=== PATIENT | male | born 1970 | race Caucasian/White ===

== ENCOUNTER 2017-03-13 18:56 | Emergency (ER) | payer SELFPAY ==
[2017-03-13] MEDS ORDERED: TRIAMCINOLONE ACETONIDE 40 MG/ML VIAL IM ONE (19:46)
[2017-03-13] MEDS ORDERED: TRIAMCINOLONE ACETONIDE 15 APPL TUBE TP ONE ×2 (19:46→19:49)
[2017-03-13] MEDS ORDERED: DEXAMETHASONE SOD PHOSPHATE 10 MG/ML VIAL IM ONE (19:46)
[2017-03-13] MEDS ORDERED: TRIAMCINOLONE ACETONIDE 40 MG/ML VIAL ONE (19:49)
[2017-03-13] MEDS ORDERED: DEXAMETHASONE SOD PHOSPHATE 10 MG/ML VIAL ONE (19:49)
[2017-03-13 19:58] VITALS: BP 122/78
--- NOTE | 2017-03-13 20:01 | ERNOTE ---
Integumentary HPI - Narrative Date of Service: 03/13/17 - General Presenting Symptoms: rash Time Seen by Provider: 03/13/17 19:33 Source: patient, RN notes reviewed Exam Limitations: no limitations - Immun/Allergies/Home Medications Immunizations: IMMUNIZATION HX Immunizations Up to Date No History of Influenza Vaccine No Allergies/Adverse Reactions: Allergies Allergy/AdvReac Type Severity Reaction Status Date / Time No Known Allergies Allergy Unverified 03/13/17 19:08 Home Medications: HOME MEDICATIONS Aspirin [Aspirin EC] 81 mg PO DAILY 03/13/17 [Last Taken Unknown] Furosemide [Lasix] 20 mg PO BID PRN 03/13/17 [Last Taken Unknown] - History of Present Illness Narrative: 46 y/o male ambulatory to the ED for a rash on his face and upper extremities that he believes is poison araseli. He was working in [employer] on March 02. The rash started shortly after. He used Zanfeel with some improvement. Location: Reports: facial, upper extremity, hands Quality: Reports: itching Severity: mild Exposure: Reports: poison araseli/oak Review of Systems - Review of Systems Constitutional: Absent: recent illness, fever, malaise EYE: Absent: eye pain, tearing ENT: Absent: nose congestion, throat swelling Respiratory: Absent: shortness of breath, cough Cardiology: Present: no symptoms reported Gastrointestinal/Abdominal: Present: no symptoms reported Genitourinary: Present: no symptoms reported Musculoskeletal: Absent: muscle pain, joint pain Skin: Present: rash. Absent: lesions Neurological: Absent: headache, dizziness/light-headedness Endocrine: Present: no symptoms reported Hematologic/Lymphatic: Present: no symptoms reported Psych: Present: no symptoms reported - Patient's Past Medical History Patient History - Medical: Diabetes Type 2 Patient History - Cardiac/Respiratory: CHF, Hypertension Patient History - Cancer: No Hx of Cancer Patient History - Surgical Procedures: Appendectomy - Social History Living Situations: home Psych History: No pertinent hx Smoking Status: Never smoker Do you dip or chew tobacco: Yes Alcohol Use: occasionally Drug Use: none - Immunizations Immunizations Up to Date: No History of Influenza Vaccine: No Physical Exam - Physical Exam General Appearance: Present: wd/wn, alert, no apparent distress Neck: Present: normal inspection, nontender, supple Respiratory: Present: no respiratory distress, normal breath sounds, no accessory muscle use, lungs clear Cardiovascular/Chest: Present: regular rate, rhythm, no murmur Neurological Exam: Present: alert, oriented, normal mood/affect, no motor/ sensory deficits Skin Exam: Present: normal color, warm/dry, other - erythematous, excoriated area on right baptism, mild inflammation of right eyelids - smaller lesions also on right hand and forearms - eruption appears to be dried and resolving ED Progress - Vital Signs Patient's Vital Signs:: I have reviewed the patient's vital signs. Vital Signs: Vital Signs 03/13/17 19:03 Temperature 36.7 C Pulse Rate 96 Respiratory 16 Rate Blood Pressure 151/93 O2 Sat by Pulse 98 Oximetry - Progress/Reassessment Chief Complaint: Rash Progress:: Unchanged Departure Clinical Impression: Poison araseli dermatitis - Departure Disposition: Home self-care Condition: Good Instructions: Poison Araseli Dermatitis Additional Instructions: Use triamcinolone cream as directed See your doctor if symptoms worsen
== END 2017-03-13 20:05 | disposition home or self-care (01) ==
LOC: ER 18:56
DX: L23.7 Allergic contact dermatitis due to plants, except food (principal)